=== PATIENT | male | born 1965 | race Caucasian/White ===

== ENCOUNTER 2018-06-21 22:43 | Emergency (ER) | payer OTHER ==
[~2018-06-21] VITALS: Ht 188 cm; Wt 108.9 kg
[2018-06-22] MEDS ORDERED: SYMBICORT 16010.2 GM IH (03:15)
[2018-06-22] MEDS ORDERED: PROVENTIL HFA6.7 GM IH (03:15)
[2018-06-22] MEDS ORDERED: ZYNCOF 20-400120 ML PO (03:15)
[2018-06-22] MEDS ORDERED: ALBUTEROL2.5 MG/3 M IH (03:15)
== END 2018-06-22 03:20 | disposition home or self-care (01) ==
LOC: ER 22:43
DX: J20.9 Acute bronchitis, unspecified (principal); J11.1 Influenza due to unidentified influenza virus with other respiratory manifestations